=== PATIENT | female | born 1985 | race Hispanic/Latino ===

== ENCOUNTER 2021-02-20 14:46 | Emergency (ER) | payer SELFPAY ==
--- NOTE | 2021-02-20 15:55 | Emergency Department Report ---
ED ENT HPI - General Chief complaint: Dental/Oral Stated complaint: SWOLLEN MOUTH/TOOTH PAIN Time Seen by Provider: 02/20/21 15:32 Source: patient Mode of arrival: Ambulatory Limitations: No Limitations - History of Present Illness Initial comments: Patient is a 35-year-old female presents emergency room complaints of right lower dental pain that began last night. She states that the pain is referring to her jaw. 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 She states that her teeth have been deteriorating since her drug use. She states that she has not seen a dentist in over 10 years. She denies any fever, nausea, vomiting, diarrhea, difficulty swallowing, difficulty breathing. Past medical history of hep C. Allergy to latex, penicillin, Benadryl. - Related Data Previous Rx's Medication Instructions Recorded Last Taken Type Chlorhexidine Mouthwash [Peridex] 15 ml MM BID #1 bottle 02/20/21 Unknown Rx Clindamycin [Clindamycin CAP] 450 mg PO TID 7 Days #63 capsule 02/20/21 Unknown Rx Ibuprofen [Motrin 600 MG tab] 600 mg PO Q8H PRN #20 tablet 02/20/21 Unknown Rx ED Dental HPI - General Chief complaint: Dental/Oral Stated complaint: SWOLLEN MOUTH/TOOTH PAIN Time Seen by Provider: 02/20/21 15:32 Source: patient Mode of arrival: Ambulatory Limitations: No Limitations - Related Data Previous Rx's Medication Instructions Recorded Last Taken Type Chlorhexidine Mouthwash [Peridex] 15 ml MM BID #1 bottle 02/20/21 Unknown Rx Clindamycin [Clindamycin CAP] 450 mg PO TID 7 Days #63 capsule 02/20/21 Unknown Rx Ibuprofen [Motrin 600 MG tab] 600 mg PO Q8H PRN #20 tablet 02/20/21 Unknown Rx ED Review of Systems ROS: Stated complaint: SWOLLEN MOUTH/TOOTH PAIN Other details as noted in HPI Comment: All other systems reviewed and negative ED Past Medical Hx - Past Medical History Additional medical history: Hep C, anemia - Surgical History Additional Surgical History: tubal ligation - Social History Smoking Status: Current Every Day Smoker - Medications Home Medications: Home Medications Medication Instructions Recorded Confirmed Last Taken Type Chlorhexidine Mouthwash [Peridex] 15 ml MM BID #1 bottle 02/20/21 Unknown Rx Clindamycin [Clindamycin CAP] 450 mg PO TID 7 Days #63 capsule 02/20/21 Unknown Rx Ibuprofen [Motrin 600 MG tab] 600 mg PO Q8H PRN #20 tablet 02/20/21 Unknown Rx ED Physical Exam - General Limitations: No Limitations General appearance: alert, in no apparent distress - Head Head exam: Present: atraumatic, normocephalic - Eye Eye exam: Present: normal appearance - ENT ENT exam: Present: mucous membranes moist, other (poor dentition, several missing teeth and dental caries, there is induration to the right lower gumline, no area of fluctuance, uvula is midline, no uvular edema or deviation, no trismus, no tongue elevation, no muffled voice) - Respiratory Respiratory exam: Absent: respiratory distress, accessory muscle use - Neurological Exam Neurological exam: Present: alert, oriented X3 - Psychiatric Psychiatric exam: Present: normal affect, normal mood - Skin Skin exam: Present: warm, dry, intact ED Course Vital Signs 02/20/21 02/20/21 14:49 16:07 Temperature 98.1 F Pulse Rate 74 78 Respiratory 20 16 Rate Blood Pressure 115/52 Blood Pressure 134/84 [Left] O2 Sat by Pulse 96 100 Oximetry ED Medical Decision Making - Medical Decision Making Patient is a 35-year-old female presents emergency room complaints of right lower dental pain that began last night. She states that the pain is referring to her jaw. 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 She states that her teeth have been deteriorating since her drug use. She states that she has not seen a dentist in over 10 years. She denies any fever, nausea, vomiting, diarrhea, difficulty swallowing, difficulty breathing. Past medical history of hep C. Allergy to latex, penicillin, Benadryl. Vitals are normal. On exam:poor dentition, several missing teeth and dental caries, there is induration to the right lower gumline, no area of fluctuance, uvula is midline, no uvular edema or deviation, no trismus, no tongue elevation, no muffled voice. Examination appears most consistent with infected dental caries and gingivitis. Patient given prescription for medications. Advised patient Please take medication as prescribed. Follow-up with a dentist. It is very important that you follow-up. Return to emergency room for any new or worsening symptoms. Critical care attestation.: If time is entered above; I have spent that time in minutes in the direct care of this critically ill patient, excluding procedure time. ED Disposition Clinical Impression: Gingivitis, Infected dental caries Disposition: TO HOME OR SELFCARE Is pt being admited?: No Does the pt Need Aspirin: No Condition: Stable Additional Instructions: Please take medication as prescribed. Follow-up with a dentist. It is very important that you follow-up. Return to emergency room for any new or worsening symptoms. Prescriptions: Clindamycin [Clindamycin CAP] 450 mg PO TID 7 Days #63 capsule Ibuprofen [Motrin 600 MG tab] 600 mg PO Q8H PRN #20 tablet PRN Reason: Pain Chlorhexidine Mouthwash [Peridex] 15 ml MM BID #1 bottle Referrals: [facility] [Outside] - 2-3 Days [facility] [Outside] - 2-3 Days Forms: Work/School Release Form(ED) Time of Disposition: 15:56 Print Language: TUNISIAN
[2021-02-20 16:13] VITALS: BP 134/84
== END 2021-02-20 16:13 | disposition home or self-care (01) ==
LOC: ED 14:46
DX: K05.10 Chronic gingivitis, plaque induced (principal); K02.9 Dental caries, unspecified; F17.200 Nicotine dependence, unspecified, uncomplicated; D64.9 Anemia, unspecified; Z98.51 Tubal ligation status; Z79.899 Other long term (current) drug therapy
CPT/HCPCS: 99282

== ENCOUNTER 2021-12-05 17:07 | Emergency (ER) | payer OTHER ==
[2021-12-05] MEDS ORDERED: ACETAMINOPHEN 500 MG TAB PO ONE (22:54)
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
[2021-12-06] MEDS ORDERED: oxyCODONE /ACETAMINOPHEN 5-325MG TAB PO ONE (00:19)
[2021-12-06] MEDS ORDERED: ONDANSETRON 4 MG ODT TAB PO ONE (00:19)
[2021-12-06 00:48] VITALS: BP 115/82
== END 2021-12-06 00:48 | disposition home or self-care (01) ==
LOC: ED 17:07
DX: S39.012A Strain of muscle, fascia and tendon of lower back, initial encounter (principal); M62.830 Muscle spasm of back; F17.200 Nicotine dependence, unspecified, uncomplicated; Z98.51 Tubal ligation status; Z88.0 Allergy status to penicillin; Z91.040 Latex allergy status; Z79.899 Other long term (current) drug therapy; V89.2XXA Person injured in unspecified motor-vehicle accident, traffic, initial encounter; Y93.89 Activity, other specified; Y92.488 Other paved roadways as the place of occurrence of the external cause; Y99.8 Other external cause status
CPT/HCPCS: 72100; 99283; J3490; Q0162